=== PATIENT | female | born 1990 | race Two or more races ===

== ENCOUNTER 2024-09-09 17:09 | Emergency (ER) | payer OTHER ==
[~2024-09-09] VITALS: Ht 167.6 cm; Wt 80.9 kg
[2024-09-09] MEDS ORDERED: PRENATA CHEWAB1 EACH PO (17:29)
[2024-09-09 18:35] LABS: HEMATOCRIT 35.2 % (36.0-45.00); HEMOGLOBIN 11.8 g/dL (12.0-15.00); MEAN CELL VOLUME 86.6 fL (80.00-100.00); MEAN CORPUSCULAR HEMOGLOBIN 29.2 pg (27.00-32.0); MEAN CORPUSCULAR HGB CONC 33.7 g/dl (32.0-36.0); PLATELET COUNT 198 K/uL (150-450); RED BLOOD COUNT 4.06 M/uL (4.00-6.00); RED CELL DISTRIBUTION WIDTH 13.9 % (11.5-14.5)
== END 2024-09-09 19:27 | disposition home or self-care (01) ==
LOC: ER 17:12
PROVIDERS: General Practice
DX: O20.9 Hemorrhage in early pregnancy, unspecified (principal); Z3A.01 Less than 8 weeks gestation of pregnancy

== ENCOUNTER 2024-09-24 09:08 | Emergency (ER) | payer OTHER ==
[~2024-09-24] VITALS: Ht 167.6 cm; Wt 81.6 kg
[~2024-09-24 09:08] MED LIST: PRENATA CHEWAB1 EACH PO
[2024-09-24 10:19] LABS: URINE APPEARANCE Clear; URINE BILIRRUBIN Negative (NEGATIVE); URINE BLOOD Large; URINE COLOR Yellow; URINE GLUCOSE Negative (NEGATIVE); URINE KETONE Negative (NEGATIVE); URINE LEUKOCYTE Negative; URINE NITRATE Negative; URINE PROTEIN Negative (NEGATIVE); URINE UROBILINOGEN 0.2 E.U./dl
[2024-09-24 10:22] LABS: URINE BACTERIA 35.4 uL (0.0-1933); URINE EPITHELIAL CELLS 1.8 uL (0.0-38.8); URINE RBC 140.5 uL (0.0-20.8); URINE WBC 4.2 uL (0.0-23.2)
[2024-09-24 10:26] LABS: HEMATOCRIT 35.4 % (36.0-45.00); HEMOGLOBIN 12.3 g/dL (12.0-15.00); MEAN CELL VOLUME 85.3 fL (80.00-100.00); MEAN CORPUSCULAR HEMOGLOBIN 29.5 pg (27.00-32.0); MEAN CORPUSCULAR HGB CONC 34.6 g/dl (32.0-36.0); PLATELET COUNT 202 K/uL (150-450); RED BLOOD COUNT 4.16 M/uL (4.00-6.00); RED CELL DISTRIBUTION WIDTH 14.1 % (11.5-14.5)
== END 2024-09-24 14:21 | disposition home or self-care (01) ==
LOC: ER 09:10
PROVIDERS: General Practice
DX: O20.8 Other hemorrhage in early pregnancy (principal); Z3A.08 8 weeks gestation of pregnancy; N93.9 Abnormal uterine and vaginal bleeding, unspecified; E03.8 Other specified hypothyroidism

== ENCOUNTER → 2024-10-20 07:29 | Outpatient (CLI) | payer OTHER | END | disposition home or self-care (01) | LOC: PRENATAL 07:29 | PROVIDERS: ATTEND Obstetrics & Gynecology Maternal & Fetal Medicine | DX: O36.80X0 Pregnancy with inconclusive fetal viability, not applicable or unspecified (principal); Z36.82 Encounter for antenatal screening for nuchal translucency; O09.519 Supervision of elderly primigravida, unspecified trimester; O99.891 Other specified diseases and conditions complicating pregnancy; Z14.8 Genetic carrier of other disease; Z3A.12 12 weeks gestation of pregnancy ==

== ENCOUNTER 2024-12-19 08:04 | Outpatient (CLI) | payer OTHER | END 2024-12-19 08:05 | disposition home or self-care (01) | LOC: PRENATAL 08:04 | PROVIDERS: ATTEND Obstetrics & Gynecology Maternal & Fetal Medicine | DX: O44.00 Complete placenta previa NOS or without hemorrhage, unspecified trimester (principal); O09.519 Supervision of elderly primigravida, unspecified trimester; O34.10 Maternal care for benign tumor of corpus uteri, unspecified trimester; Z3A.20 20 weeks gestation of pregnancy ==

== ENCOUNTER 2025-03-09 07:25 | Outpatient (CLI) | payer OTHER | END 2025-03-09 07:26 | disposition home or self-care (01) | LOC: PRENATAL 07:25 | PROVIDERS: ATTEND Obstetrics & Gynecology Maternal & Fetal Medicine | DX: O26.849 Uterine size-date discrepancy, unspecified trimester (principal); O36.8199 Decreased fetal movements, unspecified trimester, other fetus; O09.519 Supervision of elderly primigravida, unspecified trimester; O34.10 Maternal care for benign tumor of corpus uteri, unspecified trimester; O99.019 Anemia complicating pregnancy, unspecified trimester; O32.9XX0 Maternal care for malpresentation of fetus, unspecified, not applicable or unspecified; Z3A.32 32 weeks gestation of pregnancy ==

== ENCOUNTER 2025-04-26 09:44 | Inpatient (IN) | payer OTHER ==
[~2025-04-26] VITALS: Ht 167.6 cm; Wt 3.6 kg
[2025-04-26 09:35] LABS: BASO % 0.5 % (0.1-1.2); EOS # 0.06 (0.04-0.54); EOS % 0.6 % (0.7-7.0); LYMPH # 1.48 (1.18-3.74); LYMPH % 14.4 % (19.3-53.1); MEAN PLATELET VOLUME 11.40 fl (9.4-12.4); MONO # 0.69 (0.24-0.82); MONO % 6.7 % (4.7-12.5); NEUT # 7.72 (1.56-6.13); NEUT % 75.4 % (34.0-71.1); RED CELL DISTRIBUTION WIDTH 13.3 % (11.6-14.4); URINE APPEARANCE Cloudy; URINE BILIRRUBIN Negative (NEGATIVE); URINE BLOOD Negative; URINE COLOR Yellow; URINE GLUCOSE Negative (NEGATIVE); URINE KETONE Trace (NEGATIVE); URINE LEUKOCYTE Small; URINE NITRATE Negative; URINE PROTEIN Trace (NEGATIVE); URINE UROBILINOGEN 0.2 E.U./dl
[2025-04-26 09:36] LABS: URINE BACTERIA 6933.6 uL (0.0-1933); URINE EPITHELIAL CELLS 143.0 uL (0.0-38.8); URINE RBC 6.7 uL (0.0-20.8); URINE WBC 108.9 uL (0.0-23.2)
[2025-04-26 10:04] LABS: INR 0.97
[2025-04-26 10:13] LABS: URINE CAST 1.31 uL (0.0-1.40)
[2025-04-26 10:27] LABS: ALT/SGPT 25.0 U/L (12-78); AST/SGOT 19.0 U/L (15-37); BILIRUBIN TOTAL 0.75 mg/dL (0.3-1.2); BUN CREA RATIO 22.0 (7.0-25.0); CREATININE SERUM 0.54 mg/dL (0.55-1.02); GFR 127.03; GLOBULINA 3.4 G/DL (2.4-3.5); GLUCOSE FASTING 103.0 mg/dL (65-100); OSMOLALITY SERUM 279.0 MOSM/KG (275-295)
[2025-04-27 07:17] VITALS: BP 96/64
[2025-04-27] MEDS ORDERED: CEFAZOLIN SODIUM 1,000 MG VIAL ONE (14:59)
[2025-04-27] MEDS ORDERED: ERYTHROMYCIN BASE OPHT 1GM EACH TUBE OP ONE ×2 (15:01→19:30)
[2025-04-27] MEDS ORDERED: OXYTOCIN 10 UNITS/ML VIAL ONE (15:01)
[2025-04-27] MEDS ORDERED: ACETAMINOPHEN 325 MG TABLET PO PRN (18:30)
[2025-04-27] MEDS ORDERED: MORPHINE SULFATE 4 MG/ML CARTRIDGE IV PRN (18:30)
[2025-04-27] MEDS ORDERED: PROMETHAZINE HCL 25 MG/ML AMPUL IV PRN (18:45)
[2025-04-27] MEDS ORDERED: NALOXONE HCL 0.4 MG/ML AMPUL IV PRN (19:30)
[2025-04-27] MEDS ORDERED: OXYTOCIN 1,000 ML IV SCH (19:30)
[2025-04-27] MEDS ORDERED: CHLORHEXIDINE GLUCONATE 120 ML BOTTLE TP NR (19:30)
[2025-04-27 22:26] VITALS: BP 120/70
[2025-04-28 02:23] VITALS: BP 100/64
[2025-04-28 06:17] LABS: BASO % 0.4 % (0.1-1.2); EOS # 0.00 (0.04-0.54); EOS % 0.0 % (0.7-7.0); LYMPH # 1.31 (1.18-3.74); LYMPH % 9.8 % (19.3-53.1); MEAN PLATELET VOLUME 11.50 fl (9.4-12.4); MONO # 0.92 (0.24-0.82); MONO % 6.9 % (4.7-12.5); NEUT # 10.87 (1.56-6.13); NEUT % 81.6 % (34.0-71.1); RED CELL DISTRIBUTION WIDTH 13.2 % (11.6-14.4)
[2025-04-28] MEDS ORDERED: OxyCODONE HCL 5 MG TABLET (ROXICODONE) PO PRN (08:00)
[2025-04-28 08:39] VITALS: BP 109/67
[2025-04-28] MEDS ORDERED: PNV,CALCIUM 72/IRON/FOLIC ACID 1 TAB TABLET PO SCH (09:00)
[2025-04-28] MEDS ORDERED: SIMETHICONE 125 MG CAPSULE PO SCH (09:00)
[2025-04-28] MEDS ORDERED: DOCUSATE SODIUM 100MG CAP PO SCH (09:00)
[2025-04-28 16:39] VITALS: BP 104/70
[2025-04-29] VITALS: BP 97/60
[2025-04-29 08:00] VITALS: BP 91/63
[2025-04-29] MEDS ORDERED: COLACE100 MG PO (10:49)
[2025-04-29] MEDS ORDERED: IBU800 MG PO (10:49)
== END 2025-04-29 13:15 | disposition home or self-care (01) | DRG 788 ==
LOC: OB/GYN 04-27 09:45 → O/R 04-27 14:00 → OB/GYN 04-27 18:34 → O/R 04-27 21:03 → OB/GYN 04-27 21:06
PROVIDERS: Obstetrics & Gynecology; ADMIT Student in an Organized Health Care Education/Training Program; ATTEND Student in an Organized Health Care Education/Training Program
PROC: 4A1HXCZ Monitoring of Products of Conception, Cardiac Rate, External Approach (ICD-10-PCS; 2025-04-27)
PROC: 10D00Z1 Extraction of Products of Conception, Low, Open Approach (ICD-10-PCS; principal; 2025-04-27 23:30)
DX: O32.1XX0 Maternal care for breech presentation, not applicable or unspecified (principal); Z3A.39 39 weeks gestation of pregnancy; Z37.0 Single live birth